=== PATIENT | female | born 1955 | race Asian ===

== ENCOUNTER 2022-03-21 06:09 | Day surgery (SDC) | payer OTHER ==
[~2022-03-21] VITALS: Ht 170.2 cm; Wt 66.8 kg
[2022-03-21] MEDS ORDERED: LIDOCAINE 4% 50 ML SOLUTION TP ONE (06:10)
[2022-03-21] MEDS ORDERED: BENZOCAINE 20% 50 MCG/SPRAY 57 GM TP ONE (06:10)
[2022-03-21] MEDS ORDERED: LIDOCAINE 2% 11 ML JELLY TP ONE (06:10)
[2022-03-21] MEDS ORDERED: SODIUM CHLORIDE 0.9% 1,000 ML IV ONE (06:30)
[2022-03-21 06:46] LABS: COVID AG,FIA SOURCE NASAL SWAB
[2022-03-21] MEDS ORDERED: AMLO-257 PO (07:22)
[2022-03-21] MEDS ORDERED: METO25XL PO (07:22)
[2022-03-21] MEDS ORDERED: TRAZ-252 PO (07:22)
[2022-03-21] MEDS ORDERED: ASPI-1450 PO (07:22)
[2022-03-21] MEDS ORDERED: REPA2TAB8 PO (07:22)
[2022-03-21] MEDS ORDERED: ATOR20TA86 PO (07:22)
[2022-03-21] MEDS ORDERED: SODIUM CHLORIDE 0.9% 1,000 ML ONE (07:33)
[2022-03-21 08:00] LABS: GLUCOMETER DEV NAME(LOC) SDS.; GLUCOSE,POINT OF CARE 118 MG/DL (70-110)
[2022-03-21] MEDS ORDERED: MIDAZOLAM HCL 5 MG/ML VIAL ONE (08:19)
[2022-03-21] MEDS ORDERED: FentaNYL CITRATE PF 100 MCG/2 ML VIAL ONE (08:19)
[2022-03-21] MEDS ORDERED: MethylPREDNISolone SOD SUCC 125 MG/2 ML VIAL ONE (09:08)
[2022-03-21] MEDS ORDERED: MethylPREDNISolone SOD SUCC 125 MG/2 ML VIAL IVP ONE (09:15)
[2022-03-21] MEDS ORDERED: OXYGEN THERAPY IH SCH (20:00)
== END 2022-03-21 11:10 | disposition home or self-care (01) ==
LOC: SURGERY 06:09
PROVIDERS: ATTEND Internal Medicine Critical Care Medicine
DX: J38.4 Edema of larynx (principal); E05.90 Thyrotoxicosis, unspecified without thyrotoxic crisis or storm; Z79.899 Other long term (current) drug therapy; Z20.822 Contact with and (suspected) exposure to COVID-19; Z98.49 Cataract extraction status, unspecified eye; Z79.82 Long term (current) use of aspirin; Z87.442 Personal history of urinary calculi; Z98.890 Other specified postprocedural states
CPT/HCPCS: 31623; 88112; 82962; 87101; 87220; 87070; 31624; 71045; 87015; 87426; 87206; 93005; J3010; J2930; J2250; Q9967; J7030; C9803; Z7610